=== PATIENT | male | born 1985 | race Caucasian/White ===

== ENCOUNTER 2018-01-06 11:00 | Emergency (ER) | payer OTHER ==
[~2018-01-06] VITALS: Ht 180.3 cm; Wt 138.3 kg
[2018-01-06] MEDS ORDERED: OMEPRAZOLE 20 M20 M1 PO (11:25)
[2018-01-06] MEDS ORDERED: PROZAC20 MG PO (11:25)
[2018-01-06] MEDS ORDERED: PROZAC40 MG PO (11:26)
[2018-01-06] MEDS ORDERED: NORFLEX100 MG PO (13:53)
[2018-01-06 14:16] VITALS: BP 149/98
== END 2018-01-06 14:16 | disposition home or self-care (01) ==
LOC: ER 11:00
DX: R51 Headache (principal); I10 Essential (primary) hypertension; F32.9 Major depressive disorder, single episode, unspecified; F41.9 Anxiety disorder, unspecified; K21.9 Gastro-esophageal reflux disease without esophagitis